=== PATIENT | female | born 1960 | race Caucasian/White ===

== ENCOUNTER 2021-03-17 06:42 | Emergency (ER) | payer MEDICARE ==
[2021-03-17 07:28] LABS: BASOPHIL 0.5 % (0-2); EOSINOPHIL 0.1 % (0-5); HCT 34.6 % (37.0-47.0); HGB 11.9 g/dl (12.5-16.0); LYMPHOCYTE 14.2 % (15-48); MCH 28.7 pg (25.0-31.0); MCHC 34.4 g/dL (32.0-36.0); MCV 83.6 fL (78.0-100.0); MONOCYTE 8.9 % (0-12); MPV 9.8 fL (6.0-9.5); NEUTROPHIL 75.7 % (41-80); NRBC 0; PLT 311 K/uL (150-400); RBC 4.14 M/uL (4.20-5.40); RDW 12.5 % (11.5-14.0); WBC 10.3 K/uL (4.0-10.5)
[2021-03-17 07:40] LABS: ALBUMIN 3.7 g/dL (3.4-5.0); BILIRUBIN - TOTAL 0.8 mg/dL (0.2-1.0); BUN/CREAT RATIO (CALC) 28.6 RATIO; CREATININE 0.91 mg/dL (0.51-0.95); GLOBULIN (CALCULATION) 3.9 g/dL; POTASSIUM 4.3 mmol/L (3.5-5.1); TOTAL PROTEIN 7.6 g/dL (6.4-8.2)
[2021-03-17 08:15] LABS: BILIRUBIN 1+ mg/dL (NEGATIVE); BLOOD TRACE-INTACT Ery/uL (NEGATIVE); CLARITY CLEAR (CLEAR); COLOR YELLOW (YELLOW); GLUCOSE (U) 2+ mg/dL (NORMAL); LEUKOCYTES 1+ Leu/uL (NEGATIVE); NITRITE NEGATIVE (NEGATIVE); PROTEIN 1+ mg/dL (NEGATIVE); SPECIFIC GRAVITY >=1.030 (1.001-1.030); UROBILINOGEN 0.2 mg/dL (0.2-1.0); pH 5.5 (5.0-9.0)
[2021-03-17 08:28] LABS: BACTERIA 2+; URINARY WBC 20-50
[2021-03-17 09:41] LABS: CORONAVIRUS 2019 SARS-COV-2 NEGATIVE (NEGATIVE); INFLUENZA A NAA NEGATIVE (NEGATIVE)
[2021-03-17] MEDS ORDERED: ZOFRAN4 M1 PO (12:55)
[2021-03-17] MEDS ORDERED: KEFLEX250 MG PO (12:55)
== END 2021-03-17 13:00 | disposition home or self-care (01) ==
LOC: FER 06:42
PROVIDERS: Emergency Medicine
DX: N39.0 Urinary tract infection, site not specified (principal); E86.0 Dehydration; E11.9 Type 2 diabetes mellitus without complications; M54.9 Dorsalgia, unspecified; G89.29 Other chronic pain; Z79.4 Long term (current) use of insulin; Z88.0 Allergy status to penicillin; Z88.5 Allergy status to narcotic agent; Z88.8 Allergy status to other drugs, medicaments and biological substances; Z91.041 Radiographic dye allergy status; Z79.891 Long term (current) use of opiate analgesic; Z20.822 Contact with and (suspected) exposure to COVID-19
CPT/HCPCS: 36415; 80053; 81001; 83690; 85025; 87088; J0696; J0780; J1200; J2405; J7030; Q9967; U0002

== ENCOUNTER 2021-03-18 18:11 | Day surgery (SDCO) | payer MEDICARE ==
[~2021-03-18 18:11] MED LIST: KEFLEX250 MG PO; ZOFRAN4 M1 PO
[2021-03-18 18:45] LABS: BASOPHIL 0.7 % (0-2); EOSINOPHIL 1.3 % (0-5); HCT 38.5 % (37.0-47.0); LYMPHOCYTE 23.2 % (15-48); MCH 28.1 pg (25.0-31.0); MCHC 33.8 g/dL (32.0-36.0); MCV 83.3 fL (78.0-100.0); MONOCYTE 11.8 % (0-12); MPV 9.6 fL (6.0-9.5); NEUTROPHIL 62.4 % (41-80); NRBC 0; PLT 320 K/uL (150-400); RBC 4.62 M/uL (4.20-5.40); RDW 12.6 % (11.5-14.0); WBC 10.3 K/uL (4.0-10.5)
[2021-03-18 18:50] LABS: ALBUMIN 3.7 g/dL (3.4-5.0); ALKALINE PHOSHATASE 111 U/L (46-116); ALT <6 U/L (14-59); AST 24 U/L (15-37); BILIRUBIN - TOTAL 0.8 mg/dL (0.2-1.0); BUN 22 mg/dL (7-18); CHLORIDE 100 mmol/L (98-107); CO2 (BICARBONATE) 29 mmol/L (21-32); CREATININE 0.88 mg/dL (0.51-0.95); GLOBULIN (CALCULATION) 4.1 g/dL; GLUCOSE 110 mg/dL (74-106); LIPASE 599 U/L (73-393); POTASSIUM 3.2 mmol/L (3.5-5.1); TOTAL PROTEIN 7.8 g/dL (6.4-8.2)
[2021-03-18 19:10] LABS: BILIRUBIN 1+ mg/dL (NEGATIVE); BLOOD 2+ Ery/uL (NEGATIVE); CLARITY CLOUDY (CLEAR); COLOR YELLOW (YELLOW); GLUCOSE (U) NORMAL (NORMAL); LEUKOCYTES 2+ Leu/uL (NEGATIVE); NITRITE NEGATIVE (NEGATIVE); PROTEIN 1+ mg/dL (NEGATIVE); SPECIFIC GRAVITY 1.025 (1.001-1.030); UROBILINOGEN 0.2 mg/dL (0.2-1.0)
[2021-03-18 19:18] LABS: BACTERIA 1+; SQUAMOUS EPITHELIAL CELLS 20-50; URINARY RBC RARE
[2021-03-19 05:37] LABS: BASOPHIL 0.6 % (0-2); HCT 32.9 % (37.0-47.0); HGB 11.2 g/dl (12.5-16.0); LYMPHOCYTE 22.4 % (15-48); MCH 28.3 pg (25.0-31.0); MCV 83.1 fL (78.0-100.0); MONOCYTE 10.7 % (0-12); MPV 9.3 fL (6.0-9.5); NEUTROPHIL 63.8 % (41-80); NRBC 0; PLT 258 K/uL (150-400); RBC 3.96 M/uL (4.20-5.40); RDW 12.4 % (11.5-14.0); WBC 8.4 K/uL (4.0-10.5)
[2021-03-19 05:59] LABS: BUN/CREAT RATIO (CALC) 20.5 RATIO; CREATININE 0.73 mg/dL (0.51-0.95); POTASSIUM 3.6 mmol/L (3.5-5.1)
[2021-03-20] MEDS ORDERED: LIPITOR40 MG PO (13:10)
[2021-03-20] MEDS ORDERED: TESSALON PERLE100 MG PO (13:11)
[2021-03-20] MEDS ORDERED: KEFLEX250 MG PO (13:12)
[2021-03-20] MEDS ORDERED: VIBRAMYCIN100 MG PO (13:12)
[2021-03-20] MEDS ORDERED: CYMBALTA20 MG PO (13:13)
[2021-03-20] MEDS ORDERED: LEXAPRO 10MG TA10 MG PO (13:13)
[2021-03-20] MEDS ORDERED: NAPROSYN500 MG PO (13:15)
[2021-03-20] MEDS ORDERED: MACROBID100 MG PO (13:16)
[2021-03-20] MEDS ORDERED: PRILOSEC20 MG PO (13:17)
[2021-03-20] MEDS ORDERED: ONDANSETRON ODT4 MG PO (13:18)
[2021-03-20] MEDS ORDERED: ONDANSETRON HCL4 MG PO (13:18)
[2021-03-20] MEDS ORDERED: VITAMIN D21250 MCG PO (13:21)
--- NOTE | 2021-03-20 13:45 | NUR ---
PT. RESIDES WITH SPOUSE. SHE DOES USE A CANE FOR AMBULATION. SHE REPORTS THAT SHE DOES NOT NEED ANY OTHER EQUIPMENT. PLEASE ADVISE IF ANY ADDITIONAL D/C NEEDS.
[2021-03-20] MEDS ORDERED: COMPAZINE10 MG PO (14:36)
== END 2021-03-20 15:28 | disposition home or self-care (01) ==
LOC: FER 18:11 → FMS 19:47
PROVIDERS: Emergency Medicine; Nurse Practitioner; ADMIT Internal Medicine
DX: K29.00 Acute gastritis without bleeding (principal); E87.6 Hypokalemia; N39.0 Urinary tract infection, site not specified; K21.9 Gastro-esophageal reflux disease without esophagitis; E11.40 Type 2 diabetes mellitus with diabetic neuropathy, unspecified; G89.4 Chronic pain syndrome; J45.909 Unspecified asthma, uncomplicated; M79.7 Fibromyalgia; R74.8 Abnormal levels of other serum enzymes; Z79.2 Long term (current) use of antibiotics; Z79.4 Long term (current) use of insulin; Z79.899 Other long term (current) drug therapy; Z88.0 Allergy status to penicillin; Z88.5 Allergy status to narcotic agent; Z88.8 Allergy status to other drugs, medicaments and biological substances; Z91.013 Allergy to seafood; Z91.041 Radiographic dye allergy status
CPT/HCPCS: 36415; 80048; 80053; 80061; 81001; 82150; 83690; 84484; 85025; C9113; G0378; J0696; J0780; J1200; J1650; J3480; J7030; Q9967

== ENCOUNTER 2021-03-23 21:06 | Emergency (ER) | payer MEDICARE ==
[~2021-03-23 21:06] MED LIST changes: +COMPAZINE10 MG PO; +CYMBALTA20 MG PO; +LEXAPRO 10MG TA10 MG PO; +LIPITOR40 MG PO; +MACROBID100 MG PO; +NAPROSYN500 MG PO; +ONDANSETRON HCL4 MG PO; +ONDANSETRON ODT4 MG PO; +PRILOSEC20 MG PO; +TESSALON PERLE100 MG PO; +VIBRAMYCIN100 MG PO; +VITAMIN D21250 MCG PO
[2021-03-23 22:04] LABS: BASOPHIL 0.9 % (0-2); EOSINOPHIL 5.6 % (0-5); HCT 34.9 % (37.0-47.0); HGB 11.7 g/dl (12.5-16.0); LYMPHOCYTE 24.1 % (15-48); MCH 28.3 pg (25.0-31.0); MCHC 33.5 g/dL (32.0-36.0); MCV 84.5 fL (78.0-100.0); MONOCYTE 9.3 % (0-12); MPV 10.3 fL (6.0-9.5); NEUTROPHIL 59.8 % (41-80); NRBC 0; PLT 293 K/uL (150-400); RBC 4.13 M/uL (4.20-5.40); RDW 12.9 % (11.5-14.0)
[2021-03-23 22:19] LABS: ALBUMIN 3.4 g/dL (3.4-5.0); BILIRUBIN - TOTAL 0.4 mg/dL (0.2-1.0); BUN/CREAT RATIO (CALC) 8.8 RATIO; CREATININE 0.91 mg/dL (0.51-0.95); GLOBULIN (CALCULATION) 3.4 g/dL; POTASSIUM 4.1 mmol/L (3.5-5.1); TOTAL PROTEIN 6.8 g/dL (6.4-8.2)
[2021-03-23 23:02] LABS: BILIRUBIN NEGATIVE (NEGATIVE); BLOOD NEGATIVE Ery/uL (NEGATIVE); CLARITY CLEAR (CLEAR); COLOR YELLOW (YELLOW); GLUCOSE (U) NORMAL (NORMAL); LEUKOCYTES NEGATIVE Leu/uL (NEGATIVE); NITRITE NEGATIVE (NEGATIVE); PROTEIN NEGATIVE (NEGATIVE); UROBILINOGEN 0.2 mg/dL (0.2-1.0); pH 7.5 (5.0-9.0)
[2021-03-24] MEDS ORDERED: ONDANSETRON4 MG/5 ML PO (02:03)
[2021-03-24] MEDS ORDERED: CARAFATE1 GM PO (02:03)
== END 2021-03-24 02:40 | disposition home or self-care (01) ==
LOC: FER 21:06
PROVIDERS: Emergency Medicine Emergency Medical Services
DX: R11.2 Nausea with vomiting, unspecified (principal); R10.9 Unspecified abdominal pain; E11.9 Type 2 diabetes mellitus without complications; Z87.19 Personal history of other diseases of the digestive system; Z79.4 Long term (current) use of insulin; Z91.041 Radiographic dye allergy status; Z88.0 Allergy status to penicillin; Z88.8 Allergy status to other drugs, medicaments and biological substances; Z91.013 Allergy to seafood
CPT/HCPCS: 36415; 80053; 81003; 82150; 83605; 83690; 84145; 85025; C9113; J1170; J2550; J3360; J7120; Q0162